=== PATIENT | male | born 1940 | race Caucasian/White ===

== ENCOUNTER 2018-05-22 17:11 | Emergency (ER) | payer MEDICARE, BC ==
[2018-05-22] MEDS: LIDOCAINE HCL 2% (VISCOUS) 20 ML SOL MT ONE (19:18)
[2018-05-22] MEDS ORDERED: LIDOCAINE HCL 2% (VISCOUS) 20 ML SOL ONE (19:28)
[2018-05-22] MEDS: LIDOCAINE 1% W/EPI MPF 30 ML SOL INFIL ONE (19:33)
[2018-05-22] MEDS ORDERED: LIDOCAINE 1% W/EPI MPF 30 ML SOL ONE (19:34)
[2018-05-22] MEDS: TDAP VACCINE 0.5 ML SUS IM ONE (19:53)
[2018-05-22] MEDS ORDERED: TDAP VACCINE 0.5 ML SUS IM ONE (19:54)
[2018-05-22 20:29] VITALS: TEMP 97.6
[2018-05-22] MEDS: BACITRACIN 500 U/GM OIN TOP ONE ×2 (20:29→20:40)
[2018-05-22] MEDS ORDERED: BACITRACIN 500 U/GM OIN TOP ONE ×2 (20:30→20:43)
[2018-05-22 21:07] VITALS: BP 163/81; PULSE 68; RESP 16; O2SAT 98
== END 2018-05-22 20:51 | disposition home or self-care (01) | DRG 605 ==
LOC: ED 17:11
DX: S81.811A Laceration without foreign body, right lower leg, initial encounter (principal); S70.312A Abrasion, left thigh, initial encounter; S70.311A Abrasion, right thigh, initial encounter; S80.812A Abrasion, left lower leg, initial encounter
CPT/HCPCS: 12032; 90471; 90715; 99285; G0168; A4450; A6402; A6446; A9270-GY